=== PATIENT | female | born 1995 | race African-American/Black ===

== ENCOUNTER 2022-08-22 08:00 | Outpatient (CLI) | payer OTHER ==
[2022-08-22 22:25] LABS: BACTERIAL VAGINOSIS DNA NEGATIVE (NEGATIVE); CANDIDA GLABRATA DNA NEGATIVE (NEGATIVE); CANDIDA GROUP DNA POSITIVE (NEGATIVE); CANDIDA KRUSEI DNA NEGATIVE (NEGATIVE); TRICHOMONAS VAGINALIS DNA NEGATIVE (NEGATIVE)
[2022-08-22 23:32] LABS: CHLAMYDIA TRACHOMATIS DNA NEGATIVE (NEGATIVE); NEISSERIA GONORRHOEAE DNA NEGATIVE (NEGATIVE)
== END 2022-08-22 23:59 | disposition home or self-care (01) ==
LOC: LAB.N 08:00
PROVIDERS: ATTEND Nurse Practitioner
DX: N89.8 Other specified noninflammatory disorders of vagina (principal)
CPT/HCPCS: 81514; 87491; 87591; 87661

== ENCOUNTER 2022-08-23 11:25 | Outpatient (CLI) | payer OTHER ==
[2022-08-25 03:09] LABS: HCV AB <0.1 s/co ratio (0.0-0.9)
[2022-08-25 05:11] LABS: HIV SCREEN 4TH GENERATION Non Reactive (Non Reactive); RPR Non Reactive (Non Reactive)
[2022-08-28 08:10] LABS: HSV 1 IGG TYPE SPEC <0.91 index (0.00-0.90); HSV 2 IGG TYPE SPEC <0.91 index (0.00-0.90)
== END 2022-08-23 11:26 | disposition home or self-care (01) ==
LOC: LAB.N 11:25
PROVIDERS: ATTEND Nurse Practitioner
DX: Z11.3 Encounter for screening for infections with a predominantly sexual mode of transmission (principal)
CPT/HCPCS: 36415; 86592; 86695; 86696; 86803; 87389

== ENCOUNTER 2022-09-23 02:08 | Emergency (ER) | payer OTHER ==
[2022-09-23 02:18] VITALS: BP 126/98
[2022-09-23 02:32] LABS: RAPID STREP SCREEN Negative (Negative)
--- NOTE | 2022-09-23 04:17 | ED Physician Documentation ---
PD HPI HEENT - Stated complaint Stated Complaint: SORE THROAT - Chief complaint Chief Complaint: Heent - History obtained from History obtained from: Patient - History of Present Illness Timing - onset: How many days ago (3) Timing - details: Gradual onset, Waxing and waning Pain level now: 6 Location: Throat Improves: Nothing Worsens: Swalllowing Associated symptoms: No: Fever Similar symptoms before: Has not had sx before Recently seen: Not recently seen - Additional information Additional information: c/o 3 days of sore throat with odynophagia, nonproductive cough, rhinorrhea. Intermittent headaches, generalized, but resolved earlier today. She took a home COVID test earlier today and result was negative. Review of Systems Constitutional: denies: Fever Nose: reports: Rhinorrhea / runny nose. denies: Congestion Throat: reports: Sore throat Respiratory: reports: Cough. denies: Dyspnea GI: reports: Reviewed and negative PD PAST MEDICAL HISTORY - Past Medical History Past Medical History: No - Past Surgical History Past Surgical History: No - Present Medications Home Medications: Ambulatory Orders Medication Instructions Recorded Confirmed Bcp 09/23/22 - Allergies Allergies/Adverse Reactions: Allergies Allergy/AdvReac Type Severity Reaction Status Date / Time No Known Drug Allergies Allergy Verified 09/23/22 02:18 - Social History Does the pt smoke?: No Smoking Status: Never smoker Does the pt drink ETOH?: No Does the pt have substance abuse?: No - Immunizations Immunizations are current?: Yes - POLST Patient has POLST: No PD ED PE NORMAL - Vitals Vital signs reviewed: Yes - General General: Alert and oriented X 3, No acute distress, Well developed/nourished - HEENT HEENT: Moist mucous membranes, Pharynx benign - Neck Neck: Supple, no meningeal sign - Respiratory Respiratory: No respiratory distress, Clear bilaterally Results - Vitals Vitals: Oxygen O2 Source Room air - Labs Labs: Microbiology 09/23/22 02:16 Group A Strep Throat Culture - Preliminary Throat Laboratory Tests 09/23/22 02:16 Group A Strep Rapid Negative PD MEDICAL DECISION MAKING - ED course Complexity details: reviewed results, considered differential, d/w patient ED course: rapid strep negative. lungs CTA bilaterally. results d/w patient. She is given 10mg PO decadron. return precautions discussed Departure - Departure Disposition: 01 Home, Self Care Clinical Impression: Pharyngitis Qualifiers: Pharyngitis/tonsillitis etiology: unspecified etiology Qualified Code(s): J02.9 - Acute pharyngitis, unspecified Condition: Good Instructions: ED Pharyngitis Viral Report Pending Comments: The rapid strep test is negative. This makes strep throat very unlikely, but another test (culture) will be performed on the swab/sample. The culture takes 1-2 days to be completed and occasionally the culture is positive despite the rapid negative test (indicating the negative test was incorrect). If your culture is positive for strep infection, you will be contacted by this hospital and a prescription for an antibiotic will be sent to your pharmacy. If the culture is negative or inconclusive, you will not receive a call . I have provided a work excuse to be out of work until Saturday because the cause of your symptoms is very likely a contagious infection despite the negative strep test. Forms: Activity restrictions Discharge Date/Time: 09/23/22 04:44
[2022-09-23] MEDS ORDERED: DEXAMETHASONE 10 MG/ML VIAL PO STA (04:27)
[2022-09-23] MEDS ORDERED: CHERRY SYRUP 10 ML UDC PO ONE (04:27)
== END 2022-09-23 04:44 | disposition home or self-care (01) ==
LOC: ED 02:08
DX: J02.9 Acute pharyngitis, unspecified (principal); R51.9 Headache, unspecified
CPT/HCPCS: 87070; 87430; 99282; 99283; A9270

== ENCOUNTER 2022-10-10 08:00 | Outpatient (CLI) | payer OTHER ==
[2022-10-11 00:09] LABS: CHLAMYDIA TRACHOMATIS DNA NEGATIVE (NEGATIVE); NEISSERIA GONORRHOEAE DNA NEGATIVE (NEGATIVE)
[2022-10-11 03:38] LABS: BACTERIAL VAGINOSIS DNA NEGATIVE (NEGATIVE); CANDIDA GLABRATA DNA NEGATIVE (NEGATIVE); CANDIDA GROUP DNA POSITIVE (NEGATIVE); CANDIDA KRUSEI DNA NEGATIVE (NEGATIVE); TRICHOMONAS VAGINALIS DNA NEGATIVE (NEGATIVE)
== END 2022-10-10 23:59 | disposition home or self-care (01) ==
LOC: LAB.N 08:00
PROVIDERS: ATTEND Family Medicine
DX: N89.8 Other specified noninflammatory disorders of vagina (principal)
CPT/HCPCS: 81514; 87491; 87591; 87661

== ENCOUNTER 2022-12-15 10:07 | Outpatient (CLI) | payer OTHER ==
[2022-12-15 23:09] LABS: BACTERIAL VAGINOSIS DNA NEGATIVE (NEGATIVE); CANDIDA GLABRATA DNA NEGATIVE (NEGATIVE); CANDIDA GROUP DNA NEGATIVE (NEGATIVE); CANDIDA KRUSEI DNA NEGATIVE (NEGATIVE); TRICHOMONAS VAGINALIS DNA NEGATIVE (NEGATIVE)
== END 2022-12-15 23:59 | disposition home or self-care (01) ==
LOC: LAB.N 10:07
PROVIDERS: ATTEND Nurse Practitioner
DX: N39.0 Urinary tract infection, site not specified (principal); L29.2 Pruritus vulvae
CPT/HCPCS: 81514; 87086; 87181

== ENCOUNTER 2023-03-18 08:00 | Outpatient (CLI) | payer OTHER | END 2023-03-18 23:59 | disposition home or self-care (01) | LOC: LAB 08:00 | PROVIDERS: ATTEND Nurse Practitioner | DX: J02.9 Acute pharyngitis, unspecified (principal) | CPT/HCPCS: 87070 ==

== ENCOUNTER 2023-06-11 12:15 | Outpatient (CLI) | payer OTHER ==
[2023-06-11 20:21] LABS: BACTERIAL VAGINOSIS DNA NEGATIVE (NEGATIVE); CANDIDA GLABRATA DNA NEGATIVE (NEGATIVE); CANDIDA GROUP DNA POSITIVE (NEGATIVE); CANDIDA KRUSEI DNA NEGATIVE (NEGATIVE); TRICHOMONAS VAGINALIS DNA NEGATIVE (NEGATIVE)
[2023-06-11 22:42] LABS: CHLAMYDIA TRACHOMATIS DNA NEGATIVE (NEGATIVE); NEISSERIA GONORRHOEAE DNA NEGATIVE (NEGATIVE)
== END 2023-06-11 12:30 | disposition home or self-care (01) ==
LOC: LAB.N 12:15
PROVIDERS: ATTEND Specialist
DX: N89.8 Other specified noninflammatory disorders of vagina (principal)
CPT/HCPCS: 81514; 87491; 87591; 87661